=== PATIENT | female | born 1985 | race Caucasian/White ===

== ENCOUNTER 2018-10-22 08:00 | Inpatient (IN) ==
[2018-10-23] MEDS ORDERED: DEXTROSE 5%-LACTATED RINGERS 1,000 ML IV PRN (00:02)
[2018-10-23] MEDS ORDERED: ONDANSETRON HCL/PF 2 MG/ML VIAL IV PRN ×2 (00:02→08:05)
[2018-10-23] MEDS ORDERED: OXYTOCIN/DEXTROSE 5%-WATER 30 UNITS/500 ML BAG IV ONE (00:02)
[2018-10-23 01:33] LABS: Cocaine Ur Negative (NEGATIVE); Urine Barbiturate Negative (NEGATIVE); Urine Benzodiazepines Negative (NEGATIVE); Urine Opiates Negative (NEGATIVE); Urine PCP Negative (NEGATIVE); Urine THC Negative (NEGATIVE)
[2018-10-23] MEDS: RINGER'S SOLUTION,LACTATED 1,000 ML IV ONE ×2 (07:52→12:56)
--- NOTE | 2018-10-23 08:02 | HP ---
Chief Complaint - Chief Complaint Date of Service: 10/23/18 Time of Service: 07:59 Chief Complaint: induction of labor History of Present Illness: 32 yo at 39 1/7 wks presents for elective induction of labor due to with unstable lie that turned from breech to cephalic twice. This complicated by breech presentation with successful version. Rh positive Rubella non-immune GBS negative Medical History (Last Reviewed 10/23/18 @ 08:21 by Aleksander Mcdonald DO) Anemia (Acute) Onset Date: Unknown 08/12/18 w/ Ectopic , tubal Onset Date: ~12/2007 Hyperemesis gravidarum Onset Date: ~2005 Migraine Onset Date: Unknown Murmur, heart Onset Date: Unknown noted in high school, all test WNL per pt Knee pain Onset Date: Unknown right Surgical History: Surgical History (Last Reviewed 10/23/18 @ 08:22 by Aleksander Mcdonald DO) No history of previous surgery Family History: Family History (Last Reviewed 10/23/18 @ 08:22 by Aleksander Mcdonald DO) Father Hypotension Hypoglycemia Congenital cataract Mother Diabetes Asthma Grandfather , paternal Heart disease Other CHF (congestive heart failure) Social History: Preferred Language Puerto Rican Smoking Status Current every day smoker (Last Updated 10/16/18 @ 10:57 by Aleksander Mcdonald DO) No Social History Section defined Review Of Systems (GEN) - Review of Systems Generalized/Overall Review: Present: No Symptoms Reported EENTM: Present: No Symptoms Reported Respiratory: Present: No Symptoms Reported Cardiac: Present: No Symptoms Reported Abdominal: Present: No Symptoms Reported Genitourinary: Present: No Symptoms Reported Musculoskeletal: Present: No Symptoms Reported Neurological: Present: No Symptoms Reported Skin: Present: No Symptoms Reported Endocrine: Present: No Symptoms Reported Immunizations: IMMUNIZATION HX Immunizations Up to Date Yes Allergies/Adverse Reactions: Allergies Allergy/AdvReac Type Severity Reaction Status Date / Time diphenhydramine HCl Allergy Hives Verified 10/23/18 01:09 [From Consuelo] Home Medications: HOME MEDICATIONS vitamin,calcium,ayjxjzcz-qrzw-xcgmh acid tablet 1 tab PO DAILY 04/08/18 [Last Taken 09/30/18 08:00] ferrous sulfate 325 mg (65 mg iron) tablet,delayed release 325 mg PO DAILY tab 08/26/18 [Last Taken 09/30/18 08:00] Exam - Exam Vital Signs: Vital Signs - Last Taken Temp 36.9 C 10/23/18 00:10 Pulse 100 10/23/18 00:10 Resp 18 10/23/18 00:10 BP 110/66 10/23/18 00:10 Pulse Ox 98 10/23/18 00:10 Constitutional: Present: Alert, Oriented x3, Cooperative ENT Exam: Present: hearing grossly normal Breasts: Present: Exam deferred Respiratory: Present: lungs clear, no respiratory distress Cardiovascular/Chest: Present: regular rate, rhythm Abdomen: Present: soft, nontender, no rebound tenderness, other - gravid /Rectal: Present: Other - 3-4/50/-2 Extremity: Present: no pedal edema, no calf tenderness Neurologic: Present: alert, normal mood/affect, oriented x 3 Appearance: Present: appropriate appearance, appropriate insight Eye contact: Present: cooperative, good eye contact Thoughts: Present: normal thought pattern Diagnostic Studies: Laboratory Results Urine Opiates Screen Negative (NEGATIVE) 10/23/18 01:12 Barbiturate Screen Negative (NEGATIVE) 10/23/18 01:12 Ur Phencyclidine Scrn Negative (NEGATIVE) 10/23/18 01:12 Urine Amphetamine Negative (NEGATIVE) 10/23/18 01:12 U Benzodiazepines Scrn Negative (NEGATIVE) 10/23/18 01:12 Urine Cocaine Screen Negative (NEGATIVE) 10/23/18 01:12 Urine Marijuana (THC) Negative (NEGATIVE) 10/23/18 01:12 Assessment/Plan - Assessment/Plan (1) Elective induction of labor planned Assessment: Admit for pitocin induction of labor. Epidural PRN. Problem: Acute
--- NOTE | 2018-10-23 08:03 | ANES ---
Anesthesia Pre Procedure Eval Vitals/Labs: Last Vital Signs Temp 36.9 C 10/23/18 00:10 Pulse 100 10/23/18 00:10 Resp 18 10/23/18 00:10 BP 110/66 10/23/18 00:10 Pulse Ox 98 10/23/18 00:10 HOME MEDICATIONS vitamin,calcium,wheseiab-vfdq-dnnzs acid tablet 1 tab PO DAILY 04/08/18 [Last Taken 09/30/18 08:00] ferrous sulfate 325 mg (65 mg iron) tablet,delayed release 325 mg PO DAILY tab 08/26/18 [Last Taken 09/30/18 08:00] Allergies/Adverse Reactions: Allergies Allergy/AdvReac Type Severity Reaction Status Date / Time diphenhydramine HCl Allergy Hives Verified 10/23/18 01:09 [From Benadryl] - Planned Procedure Planned Procedure: INDUCTION Medication List Reviewed:: Yes Allergies Verified: Yes Medical History (Last Reviewed 10/23/18 @ 08:02 by Keenan Delatorre CRNA) Anemia (Acute) Onset Date: Unknown 08/12/18 w/ Ectopic , tubal Onset Date: ~12/2007 Hyperemesis gravidarum Onset Date: ~2005 Migraine Onset Date: Unknown Murmur, heart Onset Date: Unknown noted in high school, all test WNL per pt Knee pain Onset Date: Unknown right Surgical History (Last Reviewed 10/23/18 @ 08:02 by Keenan Delatorre CRNA) No history of previous surgery Family History (Last Reviewed 10/23/18 @ 08:02 by Keenan Delatorre CRNA) Father Hypotension Hypoglycemia Congenital cataract Mother Diabetes Asthma Grandfather , paternal Heart disease Other CHF (congestive heart failure) - Family Anesthesia History Family History:: no untoward family reactions to anesthesia, no familial bleeding tendencies, no family history of clotting disorders, no family history of premature - Airway/Neck/Teeth Within Normal Limits:: Yes Teeth Condition: intact Neck Exam: full range of motion Mallampatti Score: 2 Thyromental (T-M) distance: > 6 cm Mandibulo Hyoid distance: > 3 cm - Respiratory Respiratory Physical: lungs clear Sleep Apnea currently treated: No Sleep Apnea by current assessment: No - Cardiovascular Tolerate Activity: Fair Heart Sounds: S1 & S2, Regular, Murmur - Anesthesia Assessment and Plan ASA Class: PS, II, E Anesthesia Type Plan: Epidural - CSE for labor analgesia
--- NOTE | 2018-10-23 08:04 | PN ---
Progess Note - Interim Date: 10/23/18 Time: 08:02 Narrative: 10/23/18 08:02 Patient desires epidural Vital signs stable. Pitocin at 12 mu/min. FHT: 140 baseline, reassuring Contractions q 2-3 min Cervix: 4/50/-2, AROM-clear Impression: Intrauterine at 39 1/7 weeks induction of labor Plan: Epidural PRN. Continue present plan.
[2018-10-23] MEDS ORDERED: NALOXONE HCL 1 MG/1 ML SYRG IV PRN (08:05)
[2018-10-23] MEDS ORDERED: BUPIVACAINE HCL/0.9 % NACL/PF 250 ML EP PRN (08:05)
[2018-10-23] MEDS ORDERED: LIDOCAINE HCL/EPINEPHRINE 20 ML VIAL IJ ONE (08:07)
[2018-10-23] MEDS ORDERED: fentaNYL CITRATE/PF 50 MCG/ML AMPUL IT SCH (08:15)
--- NOTE | 2018-10-23 08:22 | ANES ---
Post Anesthesia Discharge - Transfer of Care Transfer of Care handoff given to nurse: Yes - Discharge from PACU Discharge from PACU when meets criteria: Yes - Comfortable after CSE
--- NOTE | 2018-10-23 08:24 | ANES ---
Anesthesia Procedure Note Procedure Note: ANESTHESIA PROCEDURE NOTE Date of Procedure: 10/23/2018 Time of procedure: 0800 a.m. Performed by: Keenan Delatorre CRNA, MSN Monitoring Manager: Jillian Saldivar RN. Preprocedure diagnosis: Active labor, labor pain. Post procedure diagnosis: Same. Procedure:Epidural for labor analgesia L3 4. Indications: Labor pain. Findings: See below. Details of the procedure: The patient was placed on the side of the bed in sitting positionand prepped with DuraPrep then draped in a sterile fashion. Lidocaine 1% was infiltrated to the skin and subcutaneous tissues at the level of the L3 4 interspace. An 18-gauge Touhy needle was used to approach the epidural space with loss of resistance technique. Once loss of resistance was achieved a 27-gauge spinal needle was passed through the epidural needle and CSF was contacted. After CSF returned, 20 mcg of fentanyl was injected in the spinal needle was removed the epidural catheter was then threaded approximately 4 cm in the epidural needle was removed. The catheter was taped in place and after careful aspiration 3 mL of 1.5% lidocaine with 1-200,000 epinephrine was injected without change in maternal heart rate or sensorium. . EBL: Minimal. Fluids: N/A. Specimen: N/A. Post procedure condition: The patient tolerated the procedure well with good relief. No complications were noted. Thank you for this consultation. Keenan Delatorre CRNA, MSN
--- NOTE | 2018-10-23 09:58 | ANES ---
Post Anesthesia Assessment - Vital Signs Vitals: Last Vital Signs Temp 36.5 C 10/23/18 08:24 Pulse 86 10/23/18 08:24 Resp 18 10/23/18 08:24 BP 113/60 10/23/18 08:24 Pulse Ox 98 10/23/18 08:24 Airway Patency: Normal - Mental Status Level Of Consciousness: Awake, Alert, Appropriate - Pain Level Pain Score: 0 - N/V Assessment Nausea/Vomiting Presence: None Dehydration:: No
[2018-10-23] MEDS ORDERED: RINGER'S SOLUTION,LACTATED 1,000 ML IV ONE (13:21)
--- NOTE | 2018-10-23 17:30 | PN ---
Progess Note - Interim Date: 10/23/18 Time: 17:28 Narrative: 10/23/18 17:28 Patient comfortable with epidural Vital signs stable. Pitocin at 12 mu/min. FHT: 130 baseline, reassuring Contractions q 2-3 min Cervix: 5/50/-2 Impression: Intrauterine at 39-1/7 weeks induction of labor-pr ogressing slowly. Plan: Continue present plan
[2018-10-24] MEDS: RINGER'S SOLUTION,LACTATED 1,000 ML IV PRN ×2 (07:25→09:15)
[2018-10-24] MEDS ORDERED: ceFAZolin SODIUM/DEXTROSE,ISO 2 GM/50 ML BAG IV ONE (07:28)
[2018-10-24] MEDS ORDERED: OXYTOCIN 20 UNITS in RINGER'S SOLUTION,LACTATED 1,000 ML IV ONE (07:28)
[2018-10-24] MEDS ORDERED: AZITHROMYCIN 500 MG in DEXTROSE 5 % IN WATER 250 ML IV ONE ×2 (07:29)
--- NOTE | 2018-10-24 07:45 | PN ---
Progess Note - Interim Date: 10/24/18 Time: 07:33 Narrative: 10/24/18 07:34 Patient comfortable with epidural Vital signs stable. Pitocin was up to 18 mU/m FHT:150 baseline, reassuring Contractions q 34 min, adequate labor per [place] units on IUPC Cervix: 67/50%/-4, essentially no cervical change and 12 hours Impression: Intrauterine at 39-2/7 weeks with arrest of dilation/descent Plan: Risks, benefits, and alternatives discussed with patient and family in detail. Will proceed with primary low transverse section for arrest of dilation/arrest of descent.
--- NOTE | 2018-10-24 08:53 | ANES ---
Anesthesia Pre Procedure Eval Vitals/Labs: Last Vital Signs Temp 36.5 C 10/23/18 08:24 Pulse 86 10/23/18 08:24 Resp 18 10/23/18 08:24 BP 113/60 10/23/18 08:24 Pulse Ox 98 10/23/18 08:24 HOME MEDICATIONS vitamin,calcium,rbppcglm-wlfm-cojzn acid tablet 1 tab PO DAILY 04/08/18 [Last Taken 09/30/18 08:00] ferrous sulfate 325 mg (65 mg iron) tablet,delayed release 325 mg PO DAILY tab 08/26/18 [Last Taken 09/30/18 08:00] Allergies/Adverse Reactions: Allergies Allergy/AdvReac Type Severity Reaction Status Date / Time diphenhydramine HCl Allergy Hives Verified 10/23/18 01:09 [From Benadryl] - Planned Procedure Planned Procedure: INDUCTION Medication List Reviewed:: Yes Allergies Verified: Yes Medical History (Last Reviewed 10/24/18 @ 08:51 by Keenan Delatorre CRNA) Anemia (Acute) Onset Date: Unknown 08/12/18 w/ Ectopic , tubal Onset Date: ~12/2007 Hyperemesis gravidarum Onset Date: ~2005 Migraine Onset Date: Unknown Murmur, heart Onset Date: Unknown noted in high school, all test WNL per pt Knee pain Onset Date: Unknown right Surgical History (Last Reviewed 10/24/18 @ 08:51 by Keenan Delatorre CRNA) No history of previous surgery Family History (Last Reviewed 10/24/18 @ 08:51 by Keenan Delatorre CRNA) Father Hypotension Hypoglycemia Congenital cataract Mother Diabetes Asthma Grandfather , paternal Heart disease Other CHF (congestive heart failure) - Family Anesthesia History Family History:: no untoward family reactions to anesthesia, no familial bleeding tendencies, no family history of clotting disorders, no family history of premature - Airway/Neck/Teeth Within Normal Limits:: Yes Teeth Condition: intact Neck Exam: full range of motion Mallampatti Score: 2 Thyromental (T-M) distance: > 6 cm Mandibulo Hyoid distance: > 3 cm - Respiratory Respiratory Physical: lungs clear Smoking Status: Light tobacco smoker Discussed smoking cessation including day of surgery: Yes - last 2 days ago Sleep Apnea currently treated: No Sleep Apnea by current assessment: No - Cardiovascular Tolerate Activity: Good Heart Sounds: S1 & S2, Regular - Anesthesia Assessment and Plan ASA Class: PS, II Anesthesia Type Plan: Block - TAP block for post op pain relief, discussed with Dr. Mcdonald; will pull epidural and do spinal, Spinal
[2018-10-24] MEDS ORDERED: BISACODYL 10 MG SUPP.RECT RC PRN (10:15)
[2018-10-24] MEDS ORDERED: SIMETHICONE 80 MG TAB.CHEW PO PRN (10:15)
[2018-10-24] MEDS ORDERED: ONDANSETRON HCL/PF 2 MG/ML VIAL IV PRN (10:15)
[2018-10-24] MEDS ORDERED: SENNOSIDES 8.6 MG TABLET PO PRN (10:15)
[2018-10-24] MEDS ORDERED: oxyCODONE HCL/ACETAMINOPHEN 1 TAB TABLET PO PRN (10:15)
--- NOTE | 2018-10-24 10:21 | OR ---
Operative Report - Dictated Report Narrative: Indication: 32-year-old 4 para 2 at 39-2/7 weeks progressed to 6-7 cm dilation and -2 station with no significant change agent 12 hours despite adequate labor as documented with IU[facility]. Status: Planned Pre Operative Diagnosis: 39-2/7 week intrauterine . Arrest of dilation. Arrest of descent. Post Operative Diagnosis: Same. Procedure Preformed: Primary Low Transverse Section Surgeon: Tomás Mcdonald DO Guest Services Officer: OR Staff Anesthesia: Spinal ,TAP block Estimated Blood Loss: 600 mL Urine Output: 50 mL Fluids Given: 900 mL Drains: Jackson to gravity Surgical Complications: None Specimens: Placenta to freezer Findings: Male born at 0922 on 10/24/2020 with Apgars 8 and 9, weighing 3450 g in cephalic presentation vigorously crying on mother's abdomen. Normal uterus, tubes, ovaries. Technique: The patient was taken to the operating room and placed in dorsal supine position with a left lateral tilt. After adequate spinal anesthesia, jackson catheter insertion,SCDs placed, and 2 g of Ancef and 500 mg of Zithromax given preoperatively, the abdominal cavity was entered via a modified Dung- Galeana incision. Two rolled laps were placed in the pericolic gutters on either side of the uterus. A transverse incision was made in the lower uterine segment and extended laterally and upwardly with digital traction. Clear fluid was noted upon amniotomy. The infant was delivered easily. The cord was clamped and cut and infant was handed off to awaiting client strategist. The placenta was allowed to deliver spontaneously. The uterus was cleared of clot and debris. Uterine incision was closed with 0 Vicryl using a running stitch. A second imbricating layer was placed. A qupfng-ei-afrym suture was placed in midline to control small bleeder. Excellent hemostasis was noted. Rolled laps were removed from the abdominal cavitiy. The peritoneum was closed with a running 3- 0 Monocryl. The same suture was used to approximate the rectus and pyramidalis muscles. The fascia was closed with a running 0 Vicryl. The subcutaneous layer was closed with a running 3-0 Monocryl. The same suture was used to approximate the subdermal layer. The skin was closed with a running 4-0 Monocryl and Dermabond. Sponge, lap, needle, and instrument count were correct x 2. Disposition: The patient was transferred to post anesthesia care unit in good condition
--- NOTE | 2018-10-24 10:26 | ANES ---
Anesthesia Procedure Note Procedure Note: ANESTHESIA PROCEDURE NOTE Date of Procedure: 10/24/2018 Time of procedure: 10:15. Performed by: MANISH Fritz CRNA, MSN Stem Sizer: Katy Michael. Preprocedure diagnosis: Post section pain. Post procedure diagnosis: Same. Procedure: Bilateral TAP block Indications: Post section pain relief. Findings: See below. Details of the procedure: The patient was brought to PACU and placed in the supine position. The patient was prepped with chlorhexidine and using ult rasound guidance the 3 abdominal muscular planes were identified and lidocaine 1% was infiltrated to the skin of the intended injection site. Under ultrasound guidance the the internal oblique and transverse this abdominis muscle layers were approached with visualization of a 4 inch block needle until the tip of the needle rested in the plane between the muscles. 25 mL bupivacaine 0.25% with 1-200,000 epinephrine was injected and the procedure was repeated on the other side. Please see radiology/ultrasound report for details and images of the procedure. EBL: 0 Fluids: N/A. Specimen: N/A. Post procedure condition: The patient tolerated the procedure well. No complications were noted. Thank you for this consultation. Keenan Delatorre CRNA, MSN
--- NOTE | 2018-10-24 10:27 | ANES ---
Post Anesthesia Discharge - Transfer of Care Transfer of Care handoff given to nurse: Yes - Discharge from PACU Discharge from PACU when meets criteria: Yes - Comfortable
--- NOTE | 2018-10-24 11:07 | ANES ---
Post Anesthesia Assessment - Vital Signs Vitals: Last Vital Signs Temp 36.6 C 10/24/18 10:35 Pulse 93 10/24/18 10:35 Resp 23 H 10/24/18 10:35 BP 97/49 10/24/18 10:35 Pulse Ox 100 10/24/18 10:35 Airway Patency: Normal - Mental Status Level Of Consciousness: Awake, Alert - Pain Level Pain Score: 0 - N/V Assessment Nausea/Vomiting Presence: None Dehydration:: No
[2018-10-24] MEDS: oxyCODONE HCL/ACETAMINOPHEN 1 TAB TABLET PO PRN ×2 (11:42→17:37)
[2018-10-24] MEDS: IBUPROFEN 800 MG TABLET PO PRN ×2 (14:57→22:15)
[2018-10-24] MEDS ORDERED: RHO(D) IMMUNE GLOBULIN 1,500 UNIT SYRINGE IM ONE (15:54)
[2018-10-24] MEDS: ENOXAPARIN SODIUM 40 MG/0.4 ML SYRG SC SCH (17:36)
[2018-10-24] MEDS: DOCUSATE SODIUM 100 MG CAPSULE PO SCH (22:02)
[2018-10-25] MEDS: oxyCODONE HCL/ACETAMINOPHEN 1 TAB TABLET PO PRN ×4 (01:12→16:55)
[2018-10-25] MEDS: FERROUS SULFATE 325 MG TABLET PO SCH (09:56)
[2018-10-25] MEDS: PRENATAL VITS96/IRON FUM/FOLIC 1 TAB TABLET PO SCH (09:57)
[2018-10-25] MEDS: DOCUSATE SODIUM 100 MG CAPSULE PO SCH ×3 (09:57→20:40)
[2018-10-25] MEDS: IBUPROFEN 800 MG TABLET PO PRN ×2 (09:57→18:39)
--- NOTE | 2018-10-25 11:50 | PN ---
Subjective - Date and Time Seen Date: 10/25/18 Time: 11:48 Objective - Vitals Vitals: Last Vital Signs Temp 36.4 C 10/25/18 07:36 Pulse 92 10/25/18 07:36 Resp 16 10/25/18 07:36 BP 108/57 10/25/18 07:36 Pulse Ox 97 10/25/18 07:36 Patient denies complaints. Breast-feeding well. Tolerating regular diet. Ambulating without difficulty. Pain well controlled. Lochia wnl. Abdomen - soft, appropriately tender Incision - clean, dry, intact Uterus - firm, at umbilicus -1 No calf tenderness Impression: Post op day #1 s/p primary section. Plan: Continue routine post-operative/ care Cauti Physician Documentation - Urinary Catheter Management Urethral (King) Date of Insertion: 10/23/18 Time of Insertion: 09:10 Assessment/Plan - Problems/Diagnosis (1) Elective induction of labor planned Problem: Acute
[2018-10-25] MEDS: ENOXAPARIN SODIUM 40 MG/0.4 ML SYRG SC SCH (20:41)
[2018-10-26] MEDS: oxyCODONE HCL/ACETAMINOPHEN 1 TAB TABLET PO PRN (01:32)
[2018-10-26] MEDS: IBUPROFEN 800 MG TABLET PO PRN ×2 (01:34→12:32)
--- NOTE | 2018-10-26 08:59 | PN ---
Subjective - Date and Time Seen Date: 10/26/18 Time: 08:56 Objective - Vitals Vitals: Last Vital Signs Temp 36.9 C 10/26/18 06:56 Pulse 97 10/26/18 06:56 Resp 18 10/26/18 06:56 BP 110/62 10/26/18 06:56 Pulse Ox 100 10/26/18 06:56 Patient denies complaints. Ambulating well. Tolerating regular diet. Pain well controlled. Lochia wnl. Abdomen - soft, appropriately tender Incision - clean, dry, intact Uterus - firm, at umbilicus -2 No calf tenderness Impression: Post op day #2 s/p primary section. Plan: Continue routine post-operative/ care Cauti Physician Documentation - Urinary Catheter Management Urethral (King) Date of Insertion: 10/23/18 Time of Insertion: 09:10 Assessment/Plan - Problems/Diagnosis (1) Elective induction of labor planned Problem: Acute
[2018-10-26] MEDS: FERROUS SULFATE 325 MG TABLET PO SCH (14:19)
[2018-10-26] MEDS: DOCUSATE SODIUM 100 MG CAPSULE PO SCH ×2 (14:19→20:18)
[2018-10-26] MEDS: PRENATAL VITS96/IRON FUM/FOLIC 1 TAB TABLET PO SCH (14:19)
[2018-10-26] MEDS: ENOXAPARIN SODIUM 40 MG/0.4 ML SYRG SC SCH (18:40)
[2018-10-27] MEDS: IBUPROFEN 800 MG TABLET PO PRN ×2 (00:36→11:43)
[2018-10-27 07:42] VITALS: BP 109/62
[2018-10-27] MEDS: FERROUS SULFATE 325 MG TABLET PO SCH (08:29)
[2018-10-27] MEDS: DOCUSATE SODIUM 100 MG CAPSULE PO SCH (08:29)
[2018-10-27] MEDS: PRENATAL VITS96/IRON FUM/FOLIC 1 TAB TABLET PO SCH (08:29)
--- NOTE | 2018-10-27 08:58 | PN ---
Subjective - Date and Time Seen Date: 10/27/18 Time: 08:57 Objective - Vitals Vitals: Last Vital Signs Temp 36.5 C 10/27/18 06:30 Pulse 79 10/27/18 06:30 Resp 18 10/27/18 06:30 BP 109/62 10/27/18 06:30 Pulse Ox 98 10/27/18 06:30 Patient denies complaints. Ambulating without difficulty. Tolerating regular diet. Pain well controlled. Lochia wnl. Abdomen - soft, appropriately tender Incision - clean, dry, intact Uterus - firm, at umbilicus -3 No calf tenderness Impression: Post op day #3 s/p primary section. Plan: Routine discharge instructions Cauti Physician Documentation - Urinary Catheter Management Urethral (King) Date of Insertion: 10/23/18 Time of Insertion: 09:10 Assessment/Plan - Problems/Diagnosis (1) Elective induction of labor planned Problem: Acute
[2018-10-27] MEDS: oxyCODONE HCL/ACETAMINOPHEN 1 TAB TABLET PO PRN (11:43)
--- NOTE | 2018-10-31 13:44 | PN ---
Progess Note - Interim Date: 10/31/18 Time: 13:44 History for MU Definition: * The number of deliveries resulting in a live the patient experienced prior to current hospitalization * The previous delivery of live twins or any live multiple gestation is considered one live event. *If primagravida or nulliparous is documented select zero for the number of previous live births. Live Events: 2
== END 2018-10-27 12:10 | disposition home or self-care (01) | DRG 788 ==
LOC: PREOBSVTOIN 09:29 → OB 10-23 00:21 → MS 10-26 10:06
PROVIDERS: ADMIT Obstetrics & Gynecology; ATTEND Obstetrics & Gynecology
CPT/HCPCS: 59025; 80307; 85460; J2790